=== PATIENT | female | born 1965 | race Caucasian/White ===

== ENCOUNTER → 2018-02-11 | Outpatient (CLI) | payer OTHER ==
--- NOTE | 2018-02-11 16:38 | CT ---
EXAMINATION TYPE: CT thor lumbar spine wo con DATE OF EXAM: 02/11/2018 COMPARISON: Lumbar spine x-ray January 24, 2014 HISTORY: Thoracic and lumbar pain after injury. CT DLP: 661.8 mGycm Automated exposure control for dose reduction was used. FINDINGS: There is slight S-shaped scoliosis dextroconvex in the mid thoracic spine and levoconvex centered in the upper to mid lumbar spine. No acute fracture or dislocation is seen. Small Schmorl node superior T12 endplate is identified sagittal image 39. Vertebral body heights and disc space heights are other gomez fairly well-maintained. Mild anterior spurring L3-L4 level is present. 5 lumbar-type vertebra ar e noted. Small posterior disc herniations are seen L4-L5 and L5-S1 levels on sagittal and axial image s. Mild facet arthropathy lower lumbar spine as seen on axial images. Visualized portion of lungs are clear. Cholecystectomy clips are present. Punctate densities througho ut: Likely reflect ingested food product. Additional surgical clips in the visualized right upper pel vis are noted IMPRESSION: NO ACUTE FRACTURE OR DISLOCATION IS SEEN.
== END | disposition home or self-care (01) ==
LOC: RADCTMAIN 16:06
PROVIDERS: ATTEND Emergency Medicine
DX: S23.3XXA Sprain of ligaments of thoracic spine, initial encounter (principal); S20.229A Contusion of unspecified back wall of thorax, initial encounter
CPT/HCPCS: 72128; 72131

== ENCOUNTER → 2018-03-30 | Outpatient (CLI) | payer OTHER ==
--- NOTE | 2018-03-31 09:51 | MR ---
EXAMINATION TYPE: MR cinthiaine/lspine wo con DATE OF EXAM: 03/30/2018 COMPARISON: CT thoracic and lumbar spine dated 02/11/2018 HISTORY: Contusion of unspecified back wall of thorax, hit in back from falling sledge hammer 01/2018 TECHNIQUE: Multiplanar, multisequence imaging of the thoracic and lumbar spine is performed without I V contrast. FINDINGS: THORACOLUMBAR SPINE: There is redemonstration of a slight S-shaped scoliotic curvature of the thoracolumbar spine that is dextroconvex in the mid thoracic spine and levoconvex in the mid lumbar spine. Vertebral bodies of th e lumbar and thoracic spine maintain vertebral body heights and alignment. THORACIC SPINE: There is mild edema in the subcutaneous tissues of the right paracentral upper thoracic spine from ap proximately T1-T4 without focal fluid collection. Paraspinal muscles are unremarkable throughout. The re is a questionable ill-defined right midpole T2 slightly hyperintense lesion on axial T2 image 20 o f the lumbar spine. There is a very small disc bulge at T1-T2 without spinal canal stenosis or neural foraminal narrowing . At T2-T3 there is a left paracentral disc herniation seen on axial image 14 and 15 impressing upon th e ventral thecal sac creating left paracentral focal spinal canal stenosis. No neural foraminal narro wing is seen. At T3-T4, T4-T5, T5-T6, T6-T7, T7-T8, T8-T9, T9-T10, T10-T11 and T11-T12 there is minimal disc desicc ation without spinal canal stenosis or neural foraminal narrowing. No focal disc herniation. The thoracic spinal cord signal is unremarkable throughout. Schmorl's node is again noted of the supe rior endplate of T12. LUMBAR SPINE: At T12-L1 there is no significant disc disease, spinal canal stenosis or neural foraminal narrowing. At L1-L2 there is mild disc desiccation and minimal facet arthropathy without spinal canal stenosis o r neural foraminal narrowing. At L2-L3 there is a very small central disc herniation and annular tear was upon a broad-based disc b ulge. There is also mild facet arthropathy and mild bilateral ligamentum flavum buckling resulting in minimal bilateral neural foraminal narrowing. Although there is slight impression upon the ventral t hecal sac no significant spinal canal stenosis is seen. At L3-L4 there is a right paracentral annular tear and broad-based disc bulge without focal disc mary iation. Facet arthropathy and ligamentum flavum buckling are seen. There is no spinal canal stenosis and mild bilateral neural foraminal narrowing at this level. At L4-L5 there is a right eccentric broad-based disc bulge and [id number] right neural foramina l narrowing and mild left neural foraminal narrowing. Facet arthropathy and the mentum flavum bucklin g are also seen at this level without spinal canal stenosis. At L5-S1 there is a left paracentral disc herniation impressing upon the ventral thecal sac and creat ing very mild spinal canal stenosis and mild left neural foraminal narrowing. Right neuroforamen is p atent. IMPRESSION: 1. Small left paracentral disc herniation at T2-T3 creating very mild left paracentral small focal sp inal canal stenosis. 2. Paracentral disc herniation at L3-L4 superimposed upon degenerative disc disease crating mild bila teral neural foraminal narrowing. 3. Left paracentral disc herniation at L5-S1 creating very mild spinal canal stenosis and mild left n eural foraminal narrowing. 4. Very small central disc herniation at L2-L3 and examination with degenerative disc disease create minimal bilateral neural foraminal narrowing. 5. Subcutaneous edema right paracentrally at the T1-T4 levels without focal fluid collection. 6. No evidence of vertebral body height loss or malalignment. Mild S-shaped scoliosis of the thoracol umbar spine. 7. Mild to moderate multilevel degenerative disc disease of the thoracolumbar spine. 8. Possible ill-defined right midpole renal lesion that could BE further characterized with renal ult rasound.
== END | disposition home or self-care (01) ==
LOC: RADMRIMAIN 07:46
PROVIDERS: ATTEND Emergency Medicine
DX: M99.72 Connective tissue and disc stenosis of intervertebral foramina of thoracic region (principal); M51.24 Other intervertebral disc displacement, thoracic region; M51.35 Other intervertebral disc degeneration, thoracolumbar region; M99.73 Connective tissue and disc stenosis of intervertebral foramina of lumbar region; M51.27 Other intervertebral disc displacement, lumbosacral region; S20.229D Contusion of unspecified back wall of thorax, subsequent encounter
CPT/HCPCS: 72146; 72148

== ENCOUNTER 2019-01-16 09:24 | Emergency (ER) | payer BC, OTHER ==
[2019-01-16 09:35] VITALS: BP 118/80; PULSE 66; RESP 16; TEMP 97.4
[2019-01-16] MEDS ORDERED: KETOROLAC 30 MG/ML 1 ML VIAL IM STA (10:23)
[2019-01-16] MEDS ORDERED: diphenhydrAMINE 50 MG CAP PO STA (10:23)
[2019-01-16] MEDS ORDERED: METOCLOPRAMIDE 10 MG TAB PO STA (10:23)
[2019-01-16] MEDS ORDERED: KETOROLAC 30 MG/ML 1 ML VIAL IVP STA (10:38)
[2019-01-16] MEDS ORDERED: diphenhydrAMINE 50 MG/ML 1 ML VIAL IVP STA (10:47)
[2019-01-16] MEDS ORDERED: METOCLOPRAMIDE 5 MG/ML 2 ML VIAL IVP STA (10:48)
--- NOTE | 2019-01-16 11:49 | ED ---
General Adult HPI - General Chief complaint: Headache Stated complaint: headache Time Seen by Provider: 01/16/19 10:00 Source: patient, RN notes reviewed Mode of arrival: ambulatory Limitations: no limitations - History of Present Illness Initial comments: 53-year-old female with a past medical history of migraine headache presents to the emergency department for a chief complaint of migraine 3 days. States it is across her forehead. States she does have light sensitivity and nausea and vomiting. States this pain is exactly consistent to previous migraines. Denies any maximal intensity with onset. States she is on a topiramate and her migraines were controlled however her doctor decreased her dose and she started to have migraines again. Denies any difficulty walking. Denies confusion.Patient has no other complaints at this time including shortness of breath, chest pain, abdominal pain, nausea or vomiting, headache, or visual changes. - Related Data Home Medications Medication Instructions Recorded Confirmed Multivitamins, Thera [Multivitamin 1 tab PO DAILY 01/16/19 01/16/19 (formulary)] Topiramate 50 mg PO BID 01/16/19 01/16/19 Allergies Allergy/AdvReac Type Severity Reaction Status Date / Time codeine Allergy Unknown Verified 01/16/19 10:12 Review of Systems ROS Statement: Those systems with pertinent positive or pertinent negative responses have been documented in the HPI. ROS Other: All systems not noted in ROS Statement are negative. Past Medical History Past Medical History: No Reported History Additional Past Medical History / Comment(s): Migraine headaches History of Any Multi-Drug Resistant Organisms: None Reported Past Surgical History: Appendectomy, Cholecystectomy, Orthopedic Surgery Additional Past Surgical History / Comment(s): knee Past Psychological History: No Psychological Hx Reported Smoking Status: Former smoker Past Alcohol Use History: Occasional General Exam Limitations: no limitations General appearance: alert, in no apparent distress Head exam: Present: atraumatic, normocephalic, normal inspection Eye exam: Present: normal appearance, PERRL, EOMI. Absent: scleral icterus, conjunctival injection, periorbital swelling ENT exam: Present: normal exam, mucous membranes moist Neck exam: Present: normal inspection, full ROM. Absent: tenderness, meningismus, lymphadenopathy Respiratory exam: Present: normal lung sounds bilaterally. Absent: respiratory distress, wheezes, rales, rhonchi, stridor Cardiovascular Exam: Present: regular rate, normal rhythm, normal heart sounds. Absent: systolic murmur, diastolic murmur, rubs, gallop, clicks Neurological exam: Present: alert, oriented X3, CN II-XII intact, normal gait, other (15) Expanded Patient oriented to: Present: person, place, time Speech: Present: fluid speech Cranial nerves: EOM's Intact: Normal, Tongue Deviation: Normal, Nystagmus: Normal, Facial Sensation: Normal Cerebellar function: Finger to Nose: Normal Upper motor neuron: Pronator Drift: Normal Sensory exam: Upper Extremity Light Touch: Normal, Upper Extremity Pin Prick: Normal, Lower Extremity Light Touch: Normal, Lower Extremity Pin Prick: Normal Motor strength exam: RUE: 5, LUE: 5, RLE: 5, LLE: 5 Eye Response: (4) open spontaneously Motor Response: (6) obeys commands Verbal Response: (5) oriented Miguelangel Total: 15 Course Vital Signs 01/16/19 09:34 Temperature 97.4 F L Pulse Rate 66 Respiratory 16 Rate Blood Pressure 118/80 O2 Sat by Pulse 99 Oximetry Medical Decision Making - Medical Decision Making 53-year-old female presents to the emergency department for a chief complaint of headache. Patient states this headache is exactly consistent with previous migraines. States her Topamax dose was decreased and she started to have migraines again. Vitals are stable. No focal neurologic deficits. No maximal intensity at onset. Migraine gradually came on. Patient was given migraine cocktail and had significant improvement in pain. States she is feeling well enough to go home. Patient will follow up with primary care about Topamax dose change. She will return here if she has any worsening symptoms. Disposition Clinical Impression: Migraine headache Disposition: HOME SELF-CARE Condition: Good Instructions (If sedation given, give patient instructions): Acute Headache (ED) Additional Instructions: Please follow up with primary care in 1-2 days. Please return to the emergency department if you have any worsening symptoms. Is patient prescribed a controlled substance at d/c from ED?: No Referrals: Elif Ling DO [Primary Care Provider] - 1-2 days Time of Disposition: 11:49
== END 2019-01-16 12:20 | disposition home or self-care (01) ==
LOC: EC 09:24
DX: G43.909 Migraine, unspecified, not intractable, without status migrainosus (principal); Z79.899 Other long term (current) drug therapy; Z88.5 Allergy status to narcotic agent; Z87.891 Personal history of nicotine dependence; Z53.9 Procedure and treatment not carried out, unspecified reason
CPT/HCPCS: 99283; 96374; 96375 ×2; J1200; J2765; J1885

== ENCOUNTER → 2019-01-28 | Outpatient (CLI) | payer BC ==
--- NOTE | 2019-01-28 16:58 | US ---
EXAMINATION TYPE: US kidneys/renal and bladder DATE OF EXAM: 01/28/2019 COMPARISON: NONE CLINICAL HISTORY: N28.9 Kidney Lesion seen on MRI EXAM MEASUREMENTS: Right Kidney: 11.1 x 3.9 x 5.3 cm Left Kidney: 10.4 x 4.7 x 4.5 cm Right Kidney: No hydronephrosis or masses seen, unable to appreciate mass seen on MRI Left Kidney: No hydronephrosis or masses seen Bladder: wnl There is no evidence for hydronephrosis at this point in time. No nephrolithiasis is seen. No pancho s are identified. The urinary bladder is anechoic. Bilateral ureteral jets are seen. IMPRESSION: No distinct renal lesion identified.
== END ==
LOC: RADUSWWP 16:14
PROVIDERS: ATTEND Family Medicine
DX: N28.9 Disorder of kidney and ureter, unspecified (principal)
CPT/HCPCS: 76770

== ENCOUNTER 2019-03-17 09:43 | Emergency (ER) | payer BC ==
[2019-03-17 09:51] VITALS: TEMP 98.1
[2019-03-17] MEDS ORDERED: SODIUM CHLORIDE 0.9% 1,000 ML IV STA (10:29)
--- NOTE | 2019-03-17 11:10 | ED ---
Dizziness HPI - General Chief Complaint: Dizziness Stated Complaint: Sob/chest pain Time Seen by Provider: 03/17/19 10:21 Source: patient Mode of arrival: ambulatory Limitations: no limitations - History of Present Illness Initial Comments: Patient is a 53-year-old female, with past medical history of migraines, presenting to the emergency Department with complaints of feeling dizzy as well as some shortness of breath for 2 days. Patient states for the last week she has been feeling more fatigued than usual. Patient denies any fever, chills, cough. 3 days ago patient started feeling intermittent lightheadedness when she was trying to do housework or exercising. Over the weekend she experienced the same thing as well as having chest palpitations during exercise and having hard time catching her breath. Patient states she does do a lot of cardio and states she's been having a hard time with that this past 2 days. Patient states she called her doctor today for a visit but they suggested she come to the ER. Patient denies any chest pain, nausea, vomiting, diarrhea. Patient states she has been under a lot of stress in the past month and wasn't sure if that was causing her symptoms. Patient denies any recent changes in medications. Patient has no other complaints at this time. Upon arrival to the ER, vital signs are stable. - Related Data Home Medications Medication Instructions Recorded Confirmed Multivitamins, Thera [Multivitamin 1 tab PO DAILY 01/16/19 03/17/19 (formulary)] Topiramate 50 mg PO BID 01/16/19 03/17/19 Hyoscyamine Sulfate [Levbid] 0.375 mg PO BID 03/17/19 03/17/19 valACYclovir [Valtrex] 50 mg PO DAILY 03/17/19 03/17/19 Allergies Allergy/AdvReac Type Severity Reaction Status Date / Time codeine Allergy Unknown Verified 03/17/19 11:22 Review of Systems ROS Statement: Those systems with pertinent positive or pertinent negative responses have been documented in the HPI. ROS Other: All systems not noted in ROS Statement are negative. Past Medical History Past Medical History: No Reported History Additional Past Medical History / Comment(s): Migraine headaches History of Any Multi-Drug Resistant Organisms: None Reported Past Surgical History: Appendectomy, Cholecystectomy, Orthopedic Surgery Additional Past Surgical History / Comment(s): knee Past Psychological History: No Psychological Hx Reported Smoking Status: Never smoker Past Alcohol Use History: None Reported Past Drug Use History: None Reported General Exam - General Exam Comments Initial Comments: GENERAL: Well-appearing, well-nourished and in no acute distress. HEAD: Atraumatic, normocephalic. EYES: Pupils equal round and reactive to light, extraocular movements intact, sclera anicteric, conjunctiva are normal. ENT: TMs normal, nares patent, oropharynx clear without exudates. Moist mucous membranes. NECK: Normal range of motion, supple without lymphadenopathy or JVD. LUNGS: Breath sounds clear to auscultation bilaterally and equal. No wheezes rales or rhonchi. HEART: Regular rate and rhythm without murmurs, rubs or gallops. ABDOMEN: Soft, nontender, normoactive bowel sounds. No guarding, no rebound. No masses appreciated. : Deferred EXTREMITIES: Normal range of motion, no pitting or edema. No clubbing or cyanosis. NEUROLOGICAL: Cranial nerves II through XII grossly intact. Normal speech, normal gait. PSYCH: Normal mood, normal affect. SKIN: Warm, Dry, normal turgor, no rashes or lesions noted. Limitations: no limitations Course Vital Signs 03/17/19 03/17/19 09:47 13:36 Temperature 98.1 F Pulse Rate 65 64 Respiratory 18 16 Rate Blood Pressure 127/88 109/68 O2 Sat by Pulse 99 99 Oximetry EKG Findings - EKG Comments: EKG Findings:: Ventricular rate 57, NM interval 134, QTC 410. Sinus bradycardia, left axis deviation. No acute ST segment changes Medical Decision Making - Medical Decision Making Patient is a 53-year-old female presenting with lightheadedness as well as occasional shortness of breath for the past few days. Vital signs are stable. Patient's exam is unremarkable. Lab work shows no acute abnormalities. Troponin is normal. UA shows no signs of infection. EKG shows no acute abnormalities or changes. Chest x-ray shows no acute cardiopulmonary process. Patient was given a fluid bolus. Patient states she is feeling okay right now. Denies chest pain, nausea, vomiting. Discussed with patient that her workup was normal today and that her symptoms could be from the stress she has been experiencing. Patient is requesting to be discharged. Patient will follow up w ith her PCP in the next 1-3 days. Strict return parameters were discussed with the patient and she verbalized understanding. Patient is stable for discharge at this time. Case discussed with Dr. Mitchell. - Lab Data Result diagrams: 03/17/19 11:24 03/17/19 11:24 Lab Results 03/17/19 03/17/19 03/17/19 Range/Units 11:24 11:24 11:24 WBC 5.6 (3.8-10.6) k/uL RBC 4.36 (3.80-5.40) m/uL Hgb 14.1 (11.4-16.0) gm/dL Hct 42.5 (34.0-46.0) % MCV 97.4 (80.0-100.0) fL MCH 32.3 (25.0-35.0) pg MCHC 33.2 (31.0-37.0) g/dL RDW 12.8 (11.5-15.5) % Plt Count 218 (150-450) k/uL Neutrophils % 65 % Lymphocytes % 26 % Monocytes % 5 % Eosinophils % 2 % Basophils % 1 % Neutrophils # 3.6 (1.3-7.7) k/uL Lymphocytes # 1.5 (1.0-4.8) k/uL Monocytes # 0.3 (0-1.0) k/uL Eosinophils # 0.1 (0-0.7) k/uL Basophils # 0.0 (0-0.2) k/uL PT 10.1 (9.0-12.0) sec INR 0.9 (<1.2) APTT 25.1 (22.0-30.0) sec Sodium 141 (137-145) mmol/L Potassium 4.0 (3.5-5.1) mmol/L Chloride 111 H (98-107) mmol/L Carbon Dioxide 22 (22-30) mmol/L Anion Gap 8 mmol/L BUN 16 (7-17) mg/dL Creatinine 0.71 (0.52-1.04) mg/dL Est GFR (CKD-EPI)AfAm >90 (>60 ml/min/1.73 sqM) Est GFR (CKD-EPI)NonAf >90 (>60 ml/min/1.73 sqM) Glucose 80 (74-99) mg/dL Calcium 10.1 (8.4-10.2) mg/dL Total Bilirubin 0.5 (0.2-1.3) mg/dL AST 27 (14-36) U/L ALT 24 (9-52) U/L Alkaline Phosphatase 47 (38-126) U/L Troponin I (0.000-0.034) ng/mL Total Protein 7.1 (6.3-8.2) g/dL Albumin 4.5 (3.5-5.0) g/dL Urine Color Urine Appearance (Clear) Urine pH (5.0-8.0) Ur Specific Bouse (1.001-1.035) Urine Protein (Negative) Urine Glucose (UA) (Negative) Urine Ketones (Negative) Urine Blood (Negative) Urine Nitrite (Negative) Urine Bilirubin (Negative) Urine Urobilinogen (<2.0) mg/dL Ur Leukocyte Esterase (Negative) 03/17/19 03/17/19 Range/Units 11:24 12:27 WBC (3.8-10.6) k/uL RBC (3.80-5.40) m/uL Hgb (11.4-16.0) gm/dL Hct (34.0-46.0) % MCV (80.0-100.0) fL MCH (25.0-35.0) pg MCHC (31.0-37.0) g/dL RDW (11.5-15.5) % Plt Count (150-450) k/uL Neutrophils % % Lymphocytes % % Monocytes % % Eosinophils % % Basophils % % Neutrophils # (1.3-7.7) k/uL Lymphocytes # (1.0-4.8) k/uL Monocytes # (0-1.0) k/uL Eosinophils # (0-0.7) k/uL Basophils # (0-0.2) k/uL PT (9.0-12.0) sec INR (<1.2) APTT (22.0-30.0) sec Sodium (137-145) mmol/L Potassium (3.5-5.1) mmol/L Chloride (98-107) mmol/L Carbon Dioxide (22-30) mmol/L Anion Gap mmol/L BUN (7-17) mg/dL Creatinine (0.52-1.04) mg/dL Est GFR (CKD-EPI)AfAm (>60 ml/min/1.73 sqM) Est GFR (CKD-EPI)NonAf (>60 ml/min/1.73 sqM) Glucose (74-99) mg/dL Calcium (8.4-10.2) mg/dL Total Bilirubin (0.2-1.3) mg/dL AST (14-36) U/L ALT (9-52) U/L Alkaline Phosphatase (38-126) U/L Troponin I <0.012 (0.000-0.034) ng/mL Total Protein (6.3-8.2) g/dL Albumin (3.5-5.0) g/dL Urine Color Light Yellow Urine Appearance Cloudy H (Clear) Urine pH 6.5 (5.0-8.0) Ur Specific Bouse 1.015 (1.001-1.035) Urine Protein Negative (Negative) Urine Glucose (UA) Negative (Negative) Urine Ketones Negative (Negative) Urine Blood Negative (Negative) Urine Nitrite Negative (Negative) Urine Bilirubin Negative (Negative) Urine Urobilinogen <2.0 (<2.0) mg/dL Ur Leukocyte Esterase Negative (Negative) Disposition Clinical Impression: Fatigue Disposition: HOME SELF-CARE Condition: Stable Instructions (If sedation given, give patient instructions): Fatigue (ED) Additional Instructions: Please return to the Emergency Department if symptoms worsen or any other concerns. Follow-up with PCP in the next 1 to 3 days. Continue to increase fluids and eat a regular diet. Is patient prescribed a controlled substance at d/c from ED?: No Referrals: Elif Ling DO [Primary Care Provider] - 1-2 days
[2019-03-17 11:56] LABS: Basophils % (A) 1 %; Eosinophils # (A) 0.1 k/uL (0-0.7); Eosinophils % (A) 2 %; HCT 42.5 % (34.0-46.0); HGB 14.1 gm/dL (11.4-16.0); Lymphocytes # (A) 1.5 k/uL (1.0-4.8); Lymphocytes % (A) 26 %; MCH 32.3 pg (25.0-35.0); MCHC 33.2 g/dL (31.0-37.0); MCV 97.4 fL (80.0-100.0); Mean Platelet Volume 7.2; Monocytes # (A) 0.3 k/uL (0-1.0); Monocytes % (A) 5 %; Neutrophils # (A) 3.6 k/uL (1.3-7.7); Neutrophils % (A) 65 %; Platelet Count 218 k/uL (150-450); RBC 4.36 m/uL (3.80-5.40); RDW 12.8 % (11.5-15.5); WBC 5.6 k/uL (3.8-10.6)
[2019-03-17 12:08] LABS: INR 0.9 (<1.2); Partial Thromboplastin Time 25.1 sec (22.0-30.0); Prothrombin Time 10.1 sec (9.0-12.0)
--- NOTE | 2019-03-17 12:08 | XR ---
EXAMINATION TYPE: XR chest 2V DATE OF EXAM: 03/17/2019 COMPARISON: NONE HISTORY: Chest pain and shortness of breath TECHNIQUE: Frontal and lateral views of the chest are obtained. FINDINGS: There is no focal air space opacity, pleural effusion, or pneumothorax seen. The cardiac silhouette size is within normal limits. The osseous structures are intact. Cholecystectomy clips a re seen. Very mild dextroscoliosis of the visualized thoracolumbar spine. IMPRESSION: No acute cardiopulmonary process.
[2019-03-17 12:11] LABS: ALT 24 U/L (9-52); AST 27 U/L (14-36); African American GFR (CKD) >90 (>60 ml/min/1.73 sqM); Albumin 4.5 g/dL (3.5-5.0); Alkaline Phosphatase 47 U/L (38-126); Anion Gap 8 mmol/L; Blood Urea Nitrogen 16 mg/dL (7-17); Calcium 10.1 mg/dL (8.4-10.2); Carbon Dioxide 22 mmol/L (22-30); Chloride 111 mmol/L (98-107); Glucose 80 mg/dL (74-99); Non-African American GFR(CKD) >90 (>60 ml/min/1.73 sqM); Sodium 141 mmol/L (137-145); Total Bilirubin 0.5 mg/dL (0.2-1.3); Total Protein 7.1 g/dL (6.3-8.2)
[2019-03-17 13:01] LABS: Appearance,Urine Cloudy (Clear); Bilirubin,Urine Negative (Negative); Blood,Urine Negative (Negative); Color,Urine Light Yellow; Glucose,Urine (UA) Negative (Negative); Ketones,Urine Negative (Negative); Leukocyte Esterase,Urine Negative (Negative); Nitrite,Urine Negative (Negative); PH, Urine 6.5 (5.0-8.0); Protein,Urine Negative (Negative); Specific Gravity,Urine 1.015 (1.001-1.035); Urobilinogen,Urine <2.0 mg/dL (<2.0)
[2019-03-17 13:37] VITALS: BP 109/68; PULSE 64; RESP 16
== END 2019-03-17 13:36 | disposition home or self-care (01) ==
LOC: EC 09:43
DX: R53.83 Other fatigue (principal); R42 Dizziness and giddiness; G43.909 Migraine, unspecified, not intractable, without status migrainosus; Z88.5 Allergy status to narcotic agent; Z79.899 Other long term (current) drug therapy
CPT/HCPCS: 36415; 71046; 80053; 81001; 84484; 85025; 85610; 85730; 93005; 96360; 96361; 99284

== ENCOUNTER 2020-03-06 08:06 | Emergency (ER) | payer BC ==
[2020-03-06 08:10] VITALS: RESP 18; TEMP 98.2
[2020-03-06] MEDS ORDERED: METOCLOPRAMIDE 5 MG/ML 2 ML VIAL IVP STA (09:08)
[2020-03-06] MEDS ORDERED: KETOROLAC 15 MG/ML 1 ML VIAL IVP STA (09:09)
[2020-03-06] MEDS ORDERED: SODIUM CHLORIDE 0.9% 1,000 ML IV STA ×2 (09:09)
[2020-03-06] MEDS ORDERED: diphenhydrAMINE 50 MG/ML 1 ML VIAL IVP STA (09:36)
--- NOTE | 2020-03-06 10:26 | ED ---
Headache HPI - General Chief Complaint: Headache Stated Complaint: Migrane Time Seen by Provider: 03/06/20 08:13 Source: RN notes reviewed Mode of arrival: ambulatory Limitations: no limitations - History of Present Illness Initial Comments: This a 54-year-old female with a history of migraine headaches who states she's had a migraine headache on for about a week with moderate pain some nausea no vomiting has photophobia this is typical of her migraines no loss of function to her upper or lower extremities no other complaints or modifying factors MD Complaint: headache - Related Data Home Medications Medication Instructions Recorded Confirmed Topiramate 50 mg PO TID 01/16/19 03/06/20 Hyoscyamine Sulfate [Levbid] 0.375 mg PO BID 03/17/19 03/06/20 valACYclovir [Valtrex] 500 mg PO DAILY 03/17/19 03/06/20 Allergies Allergy/AdvReac Type Severity Reaction Status Date / Time codeine Allergy Unknown Verified 03/06/20 09:50 Review of Systems ROS Statement: Those systems with pertinent positive or pertinent negative responses have been documented in the HPI. ROS Other: All systems not noted in ROS Statement are negative. Past Medical History Past Medical History: No Reported History Additional Past Medical History / Comment(s): Migraine headaches History of Any Multi-Drug Resistant Organisms: None Reported Past Surgical History: Appendectomy, Cholecystectomy, Orthopedic Surgery Additional Past Surgical History / Comment(s): knee Past Psychological History: No Psychological Hx Reported Smoking Status: Never smoker Past Alcohol Use History: None Reported Past Drug Use History: None Reported General Exam - General Exam Comments Initial Comments: Is a well-developed well-nourished awake alert oriented 3 female Limitations: no limitations General appearance: alert, in no apparent distress Head exam: Present: atraumatic, normocephalic, normal inspection Eye exam: Present: normal appearance, PERRL, EOMI. Absent: scleral icterus, conjunctival injection, periorbital swelling ENT exam: Present: normal exam, mucous membranes moist Neck exam: Present: normal inspection. Absent: tenderness, meningismus, lympha denopathy Respiratory exam: Present: normal lung sounds bilaterally. Absent: respiratory distress, wheezes, rales, rhonchi, stridor Cardiovascular Exam: Present: regular rate, normal rhythm, normal heart sounds. Absent: systolic murmur, diastolic murmur, rubs, gallop, clicks GI/Abdominal exam: Present: soft, normal bowel sounds. Absent: distended, tenderness, guarding, rebound, rigid Extremities exam: Present: normal inspection, full ROM, normal capillary refill. Absent: tenderness, pedal edema, joint swelling, calf tenderness Back exam: Present: normal inspection Neurological exam: Present: alert, oriented X3, CN II-XII intact Psychiatric exam: Present: normal affect, normal mood Skin exam: Present: warm, dry, intact, normal color. Absent: rash Course Vital Signs 03/06/20 08:09 Temperature 98.2 F Pulse Rate 63 Respiratory 18 Rate Blood Pressure 115/77 O2 Sat by Pulse 100 Oximetry Medical Decision Making - Medical Decision Making The patient is feeling much improved at this time her pain is much better she states that she would like to go home she'll be discharged. She is return if needed and otherwise follow-up with her doctor Disposition Clinical Impression: Migraine headache Disposition: HOME SELF-CARE Condition: Good Instructions (If sedation given, give patient instructions): Acute Headache (ED), Migraine Headache (ED) Is patient prescribed a controlled substance at d/c from ED?: No Referrals: Elif Ling DO [Primary Care Provider] - 1-2 days
[2020-03-06 11:07] VITALS: BP 105/68; PULSE 60
== END 2020-03-06 11:07 | disposition home or self-care (01) ==
LOC: EC 08:06
DX: G43.909 Migraine, unspecified, not intractable, without status migrainosus (principal); Z79.899 Other long term (current) drug therapy; Z88.5 Allergy status to narcotic agent
CPT/HCPCS: 99283; 96374; 96375 ×2; 96361 ×2; J1200; J2765; J1885

== ENCOUNTER 2020-03-18 03:26 | Emergency (ER) | payer BC ==
[2020-03-18 03:47] VITALS: RESP 18; TEMP 97.7
--- NOTE | 2020-03-18 03:54 | ED ---
Headache HPI - General Chief Complaint: Headache Stated Complaint: headache Time Seen by Provider: 03/18/20 03:30 Source: RN notes reviewed, old records reviewed Mode of arrival: ambulatory Limitations: no limitations - History of Present Illness Initial Comments: This is a 54-year-old female DF for evaluation she has history of migraine coming in for migraine evaluation. States she is cannot control her headache no new traumas no fevers no change in quality of her headache she has been taking her daily headache medication without help. She also has nausea no vomiting is keeping down medications. Patient just states headache relief MD Complaint: headache, "migraine" (Same as classic migraine) -: hour(s) Onset Description: gradual Location: right, left, temporal Severity: moderate Severity scale (1-10): 5 Quality: throbbing Consistency: constant Improves With: nothing Worsens With: light, noise Context: occurred at rest Associated Symptoms: nausea Treatments Prior to Arrival: none - Related Data Home Medications Medication Instructions Recorded Confirmed Topiramate 50 mg PO TID 01/16/19 03/06/20 Hyoscyamine Sulfate [Levbid] 0.375 mg PO BID 03/17/19 03/06/20 valACYclovir [Valtrex] 500 mg PO DAILY 03/17/19 03/06/20 Allergies Allergy/AdvReac Type Severity Reaction Status Date / Time codeine Allergy Unknown Verified 03/06/20 09:50 Review of Systems ROS Statement: Those systems with pertinent positive or pertinent negative responses have been documented in the HPI. ROS Other: All systems not noted in ROS Statement are negative. Past Medical History Past Medical History: No Reported History Additional Past Medical History / Comment(s): Migraine headaches History of Any Multi-Drug Resistant Organisms: None Reported Past Surgical History: Appendectomy, Cholecystectomy, Orthopedic Surgery Additional Past Surgical History / Comment(s): knee Past Psychological History: No Psychological Hx Reported Smoking Status: Never smoker Past Alcohol Use History: None Reported Past Drug Use History: None Reported General Exam Limitations: no limitations General appearance: alert, in no apparent distress Head exam: Present: atraumatic, normocephalic, normal inspection Eye exam: Present: normal appearance, PERRL, EOMI. Absent: scleral icterus, conjunctival injection, periorbital swelling ENT exam: Present: normal exam, mucous membranes moist Neck exam: Present: normal inspection. Absent: tenderness, meningismus, lymphadenopathy Respiratory exam: Present: normal lung sounds bilaterally. Absent: respiratory distress, wheezes, rales, rhonchi, stridor Cardiovascular Exam: Present: regular rate, normal rhythm, normal heart sounds. Absent: systolic murmur, diastolic murmur, rubs, gallop, clicks GI/Abdominal exam: Present: soft, normal bowel sounds. Absent: distended, tenderness, guarding, rebound, rigid Extremities exam: Present: normal inspection, full ROM, normal capillary refill. Absent: tenderness, pedal edema, joint swelling, calf tenderness Back exam: Present: normal inspection Neurological exam: Present: alert, oriented X3, CN II-XII intact Psychiatric exam: Present: normal affect, normal mood Skin exam: Present: warm, dry, intact, normal color. Absent: rash Course Vital Signs 03/18/20 03/18/20 03:43 05:47 Temperature 97.7 F 97.7 F Pulse Rate 62 78 Respiratory 18 18 Rate Blood Pressure 107/73 134/74 O2 Sat by Pulse 98 97 Oximetry - Reevaluation(s) Reevaluation #1: Medical record is reviewed Patient is improvement versus resolution of symptoms Spoke with patient regarding findings here in the ER questions answered Patient feels good for discharge Medical Decision Making - Medical Decision Making 54 female to the ER for evaluation of headache. Recent migraine headache last migraine, patient can be discharged home Disposition Clinical Impression: Migraine headache Disposition: HOME SELF-CARE Condition: Good Instructions (If sedation given, give patient instructions): Acute Headache (ED) Is patient prescribed a controlled substance at d/c from ED?: No Referrals: Elif Ling DO [Primary Care Provider] - 1-2 days
[2020-03-18] MEDS ORDERED: SODIUM CHLORIDE 0.9% 1,000 ML IV STA (03:59)
[2020-03-18] MEDS ORDERED: KETOROLAC 15 MG/ML 1 ML VIAL IVP STA (03:59)
[2020-03-18] MEDS ORDERED: METOCLOPRAMIDE 5 MG/ML 2 ML VIAL IVP STA (03:59)
[2020-03-18] MEDS ORDERED: diphenhydrAMINE 50 MG/ML 1 ML VIAL IVP STA (03:59)
[2020-03-18 05:48] VITALS: BP 134/74; PULSE 78
== END 2020-03-18 05:48 | disposition home or self-care (01) ==
LOC: EC 03:26
DX: G43.909 Migraine, unspecified, not intractable, without status migrainosus (principal); Z88.5 Allergy status to narcotic agent; Z90.49 Acquired absence of other specified parts of digestive tract
CPT/HCPCS: 99283; 96365; 96375 ×3; J1200; J2765; J2930; J1885; 96374

== ENCOUNTER 2021-09-08 00:11 | Emergency (ER) | payer BC ==
[2021-09-08 00:16] VITALS: TEMP 97.4
[2021-09-08] MEDS ORDERED: SODIUM CHLORIDE 0.9% 1,000 ML IV STA (00:50)
[2021-09-08] MEDS ORDERED: diphenhydrAMINE 50 MG/ML 1 ML VIAL IVP STA (00:50)
[2021-09-08] MEDS ORDERED: ONDANSETRON 4 MG/2 ML VIAL IVP STA (00:50)
[2021-09-08] MEDS ORDERED: KETOROLAC 15 MG/ML 1 ML VIAL IVP STA ×2 (00:50→02:20)
--- NOTE | 2021-09-08 00:53 | ED ---
General Adult HPI - General Chief complaint: Headache Stated complaint: Headache Time Seen by Provider: 09/08/21 00:23 Source: patient, RN notes reviewed Mode of arrival: wheelchair Limitations: no limitations - History of Present Illness Initial comments: 55-year-old female presents to the emergency department for evaluation of headache. Patient states this is a typical migraine headache for her, onset 36 hours prior to arrival. Patient states the pain is located on the left side of her head and is accompanied by sensitivity to light and sound, dizziness, and some blurry vision. Patient states she is nauseous and took her sumatriptan prior to arrival with no improvement. Patient states she has a headaches that become this severe a couple of times a year and has to come to the emergency department for fluids and medicine. Denies fever, chills, neck pain, chest pain, difficulty breathing, cough, abdominal pain, diarrhea, dysuria, or anshu turia. - Related Data Home Medications Medication Instructions Recorded Confirmed Topiramate 50 mg PO TID 01/16/19 03/06/20 Hyoscyamine Sulfate [Levbid] 0.375 mg PO BID 03/17/19 03/06/20 valACYclovir [Valtrex] 500 mg PO DAILY 03/17/19 03/06/20 Allergies Allergy/AdvReac Type Severity Reaction Status Date / Time codeine Allergy Unknown Verified 09/08/21 00:16 Review of Systems ROS Statement: Those systems with pertinent positive or pertinent negative responses have been documented in the HPI. ROS Other: All systems not noted in ROS Statement are negative. Past Medical History Past Medical History: No Reported History Additional Past Medical History / Comment(s): Migraine headaches History of Any Multi-Drug Resistant Organisms: None Reported Past Surgical History: Appendectomy, Cholecystectomy, Orthopedic Surgery Additional Past Surgical History / Comment(s): knee Past Psychological History: No Psychological Hx Reported Smoking Status: Never smoker Past Alcohol Use History: None Reported Past Drug Use History: None Reported General Exam Limitations: no limitations General appearance: alert, other (Well-developed, well-nourished female in moderate distress due to pain. Initial temperature 97.4, pulse 61, respirations 16, blood pressure 133/85, pulse ox 97% on room air.) Head exam: Present: atraumatic, normocephalic, normal inspection Eye exam: Present: normal appearance, PERRL, EOMI. Absent: scleral icterus, conjunctival injection, periorbital swelling Neck exam: Present: normal inspection, full ROM. Absent: tenderness, meningismus, lymphadenopathy Respiratory exam: Present: normal lung sounds bilaterally. Absent: respiratory distress, wheezes, rales, rhonchi, stridor Cardiovascular Exam: Present: regular rate, normal rhythm, normal heart sounds. Absent: systolic murmur, diastolic murmur, rubs, gallop, clicks GI/Abdominal exam: Present: soft, normal bowel sounds. Absent: distended, tenderness, guarding, rebound, rigid Back exam: Absent: CVA tenderness (R), CVA tenderness (L) Neurological exam: Present: alert, oriented X3 Psychiatric exam: Present: flat affect Skin exam: Present: warm, dry, intact, normal color Course Vital Signs 09/08/21 00:14 Temperature 97.4 F L Pulse Rate 61 Respiratory 16 Rate Blood Pressure 133/85 O2 Sat by Pulse 97 Oximetry - Reevaluation(s) Reevaluation #1: 09/08/21 02:15 Upon reassessment, patient reports modest improvement. I did offer additional dose of Toradol and patient was agreeable. Patient's nausea resolved and photosensitivity improved. Medical Decision Making - Medical Decision Making 55-year-old female with a past medical history of migraine headaches presents to the emergency department for evaluation of headache, onset 36 hours prior to arrival. Upon exam, patient is initially sensitive to light and sound, complaining of unilateral headache, and ongoing nausea. Attempt to treat migraine at home was sumatriptan prior to arrival was unsuccessful. Patient states this headache is typical of her migraines. No focal neurological deficits. Patient is afebrile with no neck stiffness. She was given migraine cocktail with repeat dose of Toradol and had significant improvement. Verbalizes readiness for discharge. Instructed to follow up with her PCP for a recheck. Return parameters discussed in detail. Patient verbalizes understanding and agrees with this plan. Attending: Philip. Disposition Clinical Impression: Migraine headache Disposition: HOME SELF-CARE Condition: Stable Instructions (If sedation given, give patient instructions): Migraine Headache (ED) Additional Instructions: Continue your home medications as prescribed. Follow-up with your PCP for recheck on Sunday. Return to emergency department with any new, worsening, or concerning symptoms. Is patient prescribed a controlled substance at d/c from ED?: No Referrals: Elif Ling DO [Primary Care Provider] - 1-2 days Time of Disposition: 02:32
[2021-09-08 03:10] VITALS: BP 106/63; PULSE 69; RESP 18
== END 2021-09-08 03:09 | disposition home or self-care (01) ==
LOC: EC 00:11
DX: G43.909 Migraine, unspecified, not intractable, without status migrainosus (principal); Z88.5 Allergy status to narcotic agent
CPT/HCPCS: 99283; 96374; 96375; 96376; 96361; J1200; J2405; J1885

== ENCOUNTER 2022-01-02 11:35 | Emergency (ER) | payer BC ==
[2022-01-02] MEDS ORDERED: SODIUM CHLORIDE 0.9% 1,000 ML IV STA (11:42)
[2022-01-02] MEDS ORDERED: KETOROLAC 15 MG/ML 1 ML VIAL IM STA (11:43)
[2022-01-02 11:52] VITALS: TEMP 97.3
--- NOTE | 2022-01-02 11:52 | ED ---
General Adult HPI - General Chief complaint: Syncope Stated complaint: syncope Time Seen by Provider: 01/02/22 11:36 - History of Present Illness Initial comments: Patient is a 56 year old female presenting to the emergency room via EMS after a syncopal episode in the bathroom earlier today while she was vomiting. She reports feeling generalized malaise and unwell for the last 3 days with increase in chronic migraines, body aches, nausea and vomiting. She has utilized her home medication of sumatriptan for migraine without any relief of headache. She had a syncopal event in the bathroom after vomiting today in which she did hit her head; she is unsure what she hit her head on but does note a small laceration and some pain to her right eyebrow. She reports feeling warm and having chills at home but has not checked her temperature. She does not have a history of any syncopal event. She denies any dizziness, focal neurological deficits, paresthesia, chest pain, or shortness of breath. She denies any known exposure to COVID. Estimated she has past medical history significant for migraines; she denies any other significant past medical history. - Related Data Home Medications Medication Instructions Recorded Confirmed Topiramate 50 mg PO TID 01/16/19 03/06/20 Hyoscyamine Sulfate [Levbid] 0.375 mg PO BID 03/17/19 03/06/20 valACYclovir HCL [Valtrex] 500 mg PO DAILY 03/17/19 03/06/20 Previous Rx's Medication Instructions Recorded Nirmatrelvir/Ritonavir [Paxlovid 1 each PO BID 5 Days #10 tab 01/02/22 2X150 mg-100 mg (Eua)] Allergies Allergy/AdvReac Type Severity Reaction Status Date / Time codeine Allergy Unknown Verified 01/02/22 11:44 Review of Systems ROS Statement: Those systems with pertinent positive or pertinent negative responses have been documented in the HPI. ROS Other: All systems not noted in ROS Statement are negative. Past Medical History Past Medical History: No Reported History Additional Past Medical History / Comment(s): Migraine headaches History of Any Multi-Drug Resistant Organisms: None Reported Past Surgical History: Appendectomy, Cholecystectomy, Orthopedic Surgery Additional Past Surgical History / Comment(s): knee Past Psychological History: No Psychological Hx Reported Smoking Status: Never smoker Past Alcohol Use History: None Reported Past Drug Use History: None Reported General Exam General appearance: alert, other (Appears ill without acute distress) Head exam: Present: normocephalic, other (Tenderness with sudden centimeter laceration to right eyebrow) Eye exam: Present: normal appearance, PERRL, EOMI. Absent: scleral icterus, conjunctival injection, periorbital swelling ENT exam: Present: normal exam, mucous membranes moist Neck exam: Present: normal inspection Respiratory exam: Present: wheezes (Upper bilateral posterior expiratory). Absent: respiratory distress, rales, rhonchi, stridor, chest wall tenderness, accessory muscle use Cardiovascular Exam: Present: regular rate, normal rhythm, normal heart sounds. Absent: systolic murmur, diastolic murmur, rubs, gallop, clicks GI/Abdominal exam: Present: soft, normal bowel sounds. Absent: distended, tenderness, guarding, rebound, rigid Extremities exam: Present: normal inspection. Absent: pedal edema, joint swelling Back exam: Present: normal inspection Neurological exam: Present: alert, oriented X3, CN II-XII intact Psychiatric exam: Present: flat affect Skin exam: Present: warm, dry, other (Laceration right eyebrow) Course Vital Signs 01/02/22 01/02/22 11:38 13:35 Temperature 97.3 F L Pulse Rate 63 57 L Respiratory 17 16 Rate Blood Pressure 107/88 113/75 O2 Sat by Pulse 100 100 Oximetry Medical Decision Making - Medical Decision Making 56-year-old female presents to the emergency room with syncopal event while vomiting and the bathroom early this morning; she also reports generalized malaise 3 days with body aches, fevers, chills nausea and vomiting. Due to syncopal event with head trauma with unknown LOC duration will check CT of the head along with EKG, chest x-ray, CBC, CMP, magnesium, troponin, amylase, lipase, urinalysis, and COVID swab. Will give additional IV fluid bolus of 1L in addition to 250 mL received by EMS denies anti-medics need at this time. Will give Toradol for pain and monitor response. Symptoms improved with IV fluids and Toradol. Computed tomography scan of brain and cervical spine without acute findings. Chest x-ray without acute cardiopulmonary process. EKG shows sinus bradycardia at patient's baseline. CBC and CMP stable coags normal. Positive for Covid. Symptomatic treatment regarding Covid reviewed. Encouraged quarantining for 5 da ys, plenty of fluid intake and vitamin C, zinc, and D, no contraindication to Paxlovid. Will prescribed. Case discussed with Dr. Ross. - Lab Data Result diagrams: 01/02/22 11:55 01/02/22 11:55 Lab Results 01/02/22 01/02/22 01/02/22 Range/Units 11:55 11:55 11:55 WBC 3.6 L (3.8-10.6) k/uL RBC 5.06 (3.80-5.40) m/uL Hgb 16.7 H (11.4-16.0) gm/dL Hct 47.8 H (34.0-46.0) % MCV 94.4 (80.0-100.0) fL MCH 33.1 (25.0-35.0) pg MCHC 35.1 (31.0-37.0) g/dL RDW 13.1 (11.5-15.5) % Plt Count 216 (150-450) k/uL MPV 8.5 Neutrophils % 49 % Lymphocytes % 35 % Monocytes % 11 % Eosinophils % 0 % Basophils % 1 % Neutrophils # 1.7 (1.3-7.7) k/uL Lymphocytes # 1.3 (1.0-4.8) k/uL Monocytes # 0.4 (0-1.0) k/uL Eosinophils # 0.0 (0-0.7) k/uL Basophils # 0.1 (0-0.2) k/uL PT 10.4 (9.0-12.0) sec INR 0.9 (<1.2) APTT 23.7 (22.0-30.0) sec Sodium 136 L (137-145) mmol/L Potassium 4.9 (3.5-5.1) mmol/L Chloride 98 (98-107) mmol/L Carbon Dioxide 22 (22-30) mmol/L Anion Gap 16 mmol/L BUN 13 (7-17) mg/dL Creatinine 0.88 (0.52-1.04) mg/dL Est GFR (CKD-EPI)AfAm 86 (>60 ml/min/1.73 sqM) Est GFR (CKD-EPI)NonAf 74 (>60 ml/min/1.73 sqM) Glucose 105 H (74-99) mg/dL Calcium 9.9 (8.4-10.2) mg/dL Magnesium 2.1 (1.6-2.3) mg/dL Total Bilirubin 0.8 (0.2-1.3) mg/dL AST 52 H (14-36) U/L ALT 22 (4-34) U/L Alkaline Phosphatase 68 (38-126) U/L Troponin I (0.000-0.034) ng/mL Total Protein 8.0 (6.3-8.2) g/dL Albumin 5.0 (3.5-5.0) g/dL Amylase 116 H (30-110) U/L Lipase 215 (23-300) U/L Coronavirus (PCR) (Not Detectd) 01/02/22 01/02/22 Range/Units 11:55 11:55 WBC (3.8-10.6) k/uL RBC (3.80-5.40) m/uL Hgb (11.4-16.0) gm/dL Hct (34.0-46.0) % MCV (80.0-100.0) fL MCH (25.0-35.0) pg MCHC (31.0-37.0) g/dL RDW (11.5-15.5) % Plt Count (150-450) k/uL MPV Neutrophils % % Lymphocytes % % Monocytes % % Eosinophils % % Basophils % % Neutrophils # (1.3-7.7) k/uL Lymphocytes # (1.0-4.8) k/uL Monocytes # (0-1.0) k/uL Eosinophils # (0-0.7) k/uL Basophils # (0-0.2) k/uL PT (9.0-12.0) sec INR (<1.2) APTT (22.0-30.0) sec Sodium (137-145) mmol/L Potassium (3.5-5.1) mmol/L Chloride (98-107) mmol/L Carbon Dioxide (22-30) mmol/L Anion Gap mmol/L BUN (7-17) mg/dL Creatinine (0.52-1.04) mg/dL Est GFR (CKD-EPI)AfAm (>60 ml/min/1.73 sqM) Est GFR (CKD-EPI)NonAf (>60 ml/min/1.73 sqM) Glucose (74-99) mg/dL Calcium (8.4-10.2) mg/dL Magnesium (1.6-2.3) mg/dL Total Bilirubin (0.2-1.3) mg/dL AST (14-36) U/L ALT (4-34) U/L Alkaline Phosphatase (38-126) U/L Troponin I <0.012 (0.000-0.034) ng/mL Total Protein (6.3-8.2) g/dL Albumin (3.5-5.0) g/dL Amylase (30-110) U/L Lipase (23-300) U/L Coronavirus (PCR) Detected A (Not Detectd) - EKG Data EKG Comments: Sinus bradycardia with a shortened MD interval, ventricular rate 58 bpm, MD interval 117 ms QRS duration 87 ms, QT/QTC 432/429 ms, PRT axes 69, -67, -18. - Radiology Data Radiology results: report reviewed, image reviewed CT brain cervical spine without contrast shows no acute intracranial process. No evidence of cervical spine fracture. Mild degenerative disc disease. Chest x-ray two-view shows no acute cardiopulmonary process/disease. Disposition Clinical Impression: Syncope, COVID Disposition: HOME SELF-CARE Condition: Stable Instructions (If sedation given, give patient instructions): COVID-19 (Coronavirus Disease 2019) (ED), Syncope (ED) Additional Instructions: Please quarantine for 5 days after testing positive and restart quarantine if symptoms worsen. Please utilize Tylenol as needed for fevers and pain. Taking vitamin C, Zinc, vitamin D 50 mcg, and melatonin may help symptom recovery. Please complete antiviral course asked prescribed. Please follow-up with your primary care provider after your quarantine is complete. Please drink plenty of fluids to stay well hydrated avoiding caffeinated products. Please return to the Emergency Department if symptoms worsen or any other concerns. Prescriptions: Nirmatrelvir/Ritonavir [Paxlovid 2X150 mg-100 mg (Eua)] 1 each PO BID 5 Days #10 tab Is patient prescribed a controlled substance at d/c from ED?: No Referrals: Elif Ling DO [Primary Care Provider] - 1-2 days Time of Disposition: 14:34
[2022-01-02 12:16] LABS: Basophils # (A) 0.1 k/uL (0-0.2); Basophils % (A) 1 %; Eosinophils % (A) 0 %; HCT 47.8 % (34.0-46.0); HGB 16.7 gm/dL (11.4-16.0); Lymphocytes # (A) 1.3 k/uL (1.0-4.8); Lymphocytes % (A) 35 %; MCH 33.1 pg (25.0-35.0); MCHC 35.1 g/dL (31.0-37.0); MCV 94.4 fL (80.0-100.0); Mean Platelet Volume 8.5; Monocytes # (A) 0.4 k/uL (0-1.0); Monocytes % (A) 11 %; Neutrophils # (A) 1.7 k/uL (1.3-7.7); Neutrophils % (A) 49 %; Platelet Count 216 k/uL (150-450); RBC 5.06 m/uL (3.80-5.40); RDW 13.1 % (11.5-15.5); WBC 3.6 k/uL (3.8-10.6)
[2022-01-02 12:27] LABS: Calcium 9.9 mg/dL (8.4-10.2); Total Bilirubin 0.8 mg/dL (0.2-1.3)
[2022-01-02 12:32] LABS: INR 0.9 (<1.2); Partial Thromboplastin Time 23.7 sec (22.0-30.0); Prothrombin Time 10.4 sec (9.0-12.0)
--- NOTE | 2022-01-02 12:50 | CT ---
EXAMINATION TYPE: CT brain cspine wo con CT DLP: 1274.1 mGycm, Automated exposure control for dose reduction was used. DATE OF EXAM: 01/02/2022 12:37 PM COMPARISON: CT thoracolumbar spine 02/11/2018. CLINICAL INDICATION:Female, 56 years old with history of syncope/fall; Syncope/fall TECHNIQUE: Brain: Multiple axial CT images of the brain were obtained without IV contrast. Cspine: Axial CT images from the skull base to the inferior aspect of T2 we obtained without intraven ous contrast. Coronal and sagittal reformatted images were also reviewed. FINDINGS: Brain: Extra-axial spaces: No abnormal extra-axial fluid collections. Ventricular system: Within normal limits Cerebral parenchyma: No acute intraparenchymal hemorrhage or mass effect. The jordan-white junction is well differentiated. Cerebellum: Unremarkable. Mass effect: No evidence of midline shift. Intracranial vasculature: unremarkable Soft tissues: Normal. Calvarium/osseous structures: No depressed skull fracture. Paranasal sinuses and mastoid air cells: Clear. Visualized orbits: Orbital contents are intact. Cervical spine: Fracture: None. Osseous structures: Multilevel degenerative disc disease changes with endplate spurring and disc oste ophyte complex's. Vertebral alignment: Stable grade 1 anterolisthesis of T2 on T3. Straightening of the cervical spine Spinal canal/Neural Foramina: Disc osteophyte complexes at C5-C6 with at least mild spinal canal sten osis. No evidence for significant neural foraminal stenosis. Neck soft tissues: Prevertebral soft tissues are within normal limits. Other: The airway is patent. Biapical pleural-parenchymal scarring with right greater than left. IMPRESSION: 1. No acute intracranial process. 2. No evidence of cervical spine fracture. 3. Mild multilevel degenerative disc disease.
--- NOTE | 2022-01-02 12:52 | XR ---
EXAMINATION TYPE: XR chest 2V DATE OF EXAM: 01/02/2022 12:36 PM COMPARISON: Chest radiographs from 03/17/2019. TECHNIQUE: XR chest 2V Frontal and lateral views of the chest. CLINICAL INDICATION:Female, 56 years old with history of syncope; FINDINGS: Lungs/Pleura: There is no evidence of pleural effusion, focal consolidation, or pneumothorax. Pulmonary vascularity: Unremarkable. Heart/mediastinum: Cardiomediastinal silhouette is unremarkable. Musculoskeletal: No acute osseous pathology. Dextrocurvature of the thoracic spine. IMPRESSION: No acute cardiopulmonary disease/process.
[2022-01-02 13:09] LABS: Potassium 4.9 mmol/L (3.5-5.1)
[2022-01-02 13:10] LABS: Magnesium 2.1 mg/dL (1.6-2.3)
[2022-01-02 13:36] VITALS: RESP 16
[2022-01-02 15:00] VITALS: BP 109/77; PULSE 65
== END 2022-01-02 15:00 | disposition home or self-care (01) ==
LOC: EC 11:35
DX: U07.1 COVID-19 (principal); R55 Syncope and collapse; Z88.5 Allergy status to narcotic agent
CPT/HCPCS: 93005; 80053; 82150; 83690; 83735; 84484; 85025; 85610; 85730; 87635; 71046; 72125; 70450; 99284; 96360; 96361; 96372; J1885; 36415; 99285

== ENCOUNTER 2022-01-06 18:34 | Emergency (ER) | payer BC ==
[2022-01-06] MEDS ORDERED: SODIUM CHLORIDE 0.9% 1,000 ML IV STA (22:19)
[2022-01-06] MEDS ORDERED: ONDANSETRON 4 MG/2 ML VIAL IVP STA (22:19)
--- NOTE | 2022-01-06 22:19 | ED ---
General Adult HPI - General Chief complaint: Nausea/Vomiting/Diarrhea Stated complaint: COVID+ Time Seen by Provider: 01/06/22 22:13 Source: patient, family, RN notes reviewed Mode of arrival: ambulatory Limitations: no limitations - History of Present Illness Initial comments: Who was diagnosed with COVID-19 last Sunday. She has been ill since then. Patient had headache, fever, body aches, mild cough, patient has had a diminished appetite with vomiting which has progressed since the illness. Patient became lightheaded on Sunday and had a syncopal episode was seen here. Patient states she is still having problems holding down any significant fluids. She is denying any abdominal pain. No shortness of breath. No chest pain. POSITIVE body aches, no changes in vision or hearing, no sore throat or difficulty with speech, no neck pain, no chest pain or shortness of breath, no abdominal pain, no changes in urination or bowel movements, no numbness or tingling, no extremity pain, no skin rashes or lesions. Patient states she was given the antiviral medication for COVID-19 but has been and I take it due to the diminished appetite and vomiting Past medical, surgical, social, and family history reviewed. - Related Data Home Medications Medication Instructions Recorded Confirmed Topiramate 50 mg PO TID 01/16/19 03/06/20 Hyoscyamine Sulfate [Levbid] 0.375 mg PO BID 03/17/19 03/06/20 valACYclovir HCL [Valtrex] 500 mg PO DAILY 03/17/19 03/06/20 Previous Rx's Medication Instructions Recorded Nirmatrelvir/Ritonavir [Paxlovid 1 each PO BID 5 Days #10 tab 01/02/22 2X150 mg-100 mg (Eua)] Allergies Allergy/AdvReac Type Severity Reaction Status Date / Time codeine Allergy Unknown Verified 01/06/22 19:30 Review of Systems ROS Statement: Those systems with pertinent positive or pertinent negative responses have been documented in the HPI. ROS Other: All systems not noted in ROS Statement are negative. Past Medical History Past Medical History: No Reported History Additional Past Medical History / Comment(s): Migraine headaches History of Any Multi-Drug Resistant Organisms: None Reported Past Surgical History: Appendectomy, Cholecystectomy, Orthopedic Surgery Additional Past Surgical History / Comment(s): knee Past Psychological History: No Psychological Hx Reported Smoking Status: Never smoker Past Alcohol Use History: None Reported Past Drug Use History: None Reported General Exam - General Exam Comments Initial Comments: Patient appears to be ill but not toxic. Patient's vital signs are stable, patient afebrile. Patient does have capillary refill about 3 seconds. However actually has some moist mucous membranes. No respiratory distress. Limitations: no limitations General appearance: alert, in no apparent distress Head exam: Present: atraumatic, normocephalic, normal inspection Eye exam: Present: normal appearance, PERRL, EOMI. Absent: scleral icterus, conjunctival injection, periorbital swelling ENT exam: Present: normal exam, normal oropharynx, mucous membranes moist, normal external ear exam. Absent: mucous membranes dry Neck exam: Present: normal inspection, full ROM. Absent: tenderness, meningismus, lymphadenopathy Respiratory exam: Present: normal lung sounds bilaterally. Absent: respiratory distress, wheezes, rales, rhonchi, stridor, chest wall tenderness, accessory muscle use, decreased breath sounds, prolonged expiratory Cardiovascular Exam: Present: regular rate, normal rhythm, normal heart sounds. Absent: systolic murmur, diastolic murmur, rubs, gallop, clicks GI/Abdominal exam: Present: soft, normal bowel sounds. Absent: distended, tenderness, guarding, rebound, rigid Extremities exam: Present: normal inspection, full ROM, normal capillary refill. Absent: tenderness, pedal edema, joint swelling, calf tenderness Back exam: Present: normal inspection Neurological exam: Present: alert, oriented X3, CN II-XII intact Psychiatric exam: Present: normal affect, normal mood Skin exam: Present: warm, dry, intact, normal color. Absent: rash Course Vital Signs 01/06/22 19:26 Temperature 98.1 F Pulse Rate 58 L Respiratory 22 Rate Blood Pressure 120/77 O2 Sat by Pulse 100 Oximetry - Reevaluation(s) Reevaluation #1: 01/07/22 01:10 Medical record is reviewed Patient asking for something for her generalized body aches Patient is informed of results and questions answered Patient in no distress Reevaluation #2: 01/07/22 02:25 Patient reevaluated is doing much better. No subsequent vomiting after anti- emetics. Patient able to hold down fluids. No distress. Stable vital signs. Medical Decision Making - Medical Decision Making The patient's vital signs, she can likely be discharged. However we'll order basic labs, hydration, antiemetics, and for reevaluation. Patient has no abdominal tenderness. This is unlikely to be other etiology. Symptoms consistent with COVID-19 infection. Not consistent with intra- abdominal pathology otherwise. No consistent with cardiopulmonary disease. Patient counseled on hydration strategies, clear liquid diet, quarantine measures, and follow-up. Patient was told to return to the ER for any signs or symptoms worsen. Told to return immediately if any other problems arise. All questions answered. Treatment plan discussed. Patient in agreement Every effort has been made to ensure accuracy of this dictation. However, due to the limitations of electronic medical records and dictation devices, errors in charting still occur. 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 Palacios - Lab Data Result diagrams: 01/07/22 00:03 01/07/22 00:04 Lab Results 01/07/22 01/07/22 Range/Units 00:03 00:04 WBC 2.8 L (3.8-10.6) k/uL RBC 4.82 (3.80-5.40) m/uL Hgb 15.0 (11.4-16.0) gm/dL Hct 45.1 (34.0-46.0) % MCV 93.7 (80.0-100.0) fL MCH 31.1 (25.0-35.0) pg MCHC 33.2 (31.0-37.0) g/dL RDW 12.6 (11.5-15.5) % Plt Count 180 (150-450) k/uL MPV 8.5 Neutrophils % 35 % Lymphocytes % 54 % Monocytes % 5 % Eosinophils % 3 % Basophils % 1 % Neutrophils # 1.0 L (1.3-7.7) k/uL Lymphocytes # 1.5 (1.0-4.8) k/uL Monocytes # 0.2 (0-1.0) k/uL Eosinophils # 0.1 (0-0.7) k/uL Basophils # 0.0 (0-0.2) k/uL Sodium 135 L (137-145) mmol/L Potassium 4.3 (3.5-5.1) mmol/L Chloride 99 (98-107) mmol/L Carbon Dioxide 28 (22-30) mmol/L Anion Gap 8 mmol/L BUN 13 (7-17) mg/dL Creatinine 0.65 (0.52-1.04) mg/dL Est GFR (CKD-EPI)AfAm >90 (>60 ml/min/1.73 sqM) Est GFR (CKD-EPI)NonAf >90 (>60 ml/min/1.73 sqM) Glucose 93 (74-99) mg/dL Calcium 9.1 (8.4-10.2) mg/dL Total Bilirubin 0.5 (0.2-1.3) mg/dL AST 35 (14-36) U/L ALT 39 H (4-34) U/L Alkaline Phosphatase 56 (38-126) U/L Total Protein 6.4 (6.3-8.2) g/dL Albumin 4.1 (3.5-5.0) g/dL Lipase 167 (23-300) U/L Disposition Clinical Impression: COVID-19, Nausea & vomiting, Dehydration Disposition: HOME SELF-CARE Condition: Good Instructions (If sedation given, give patient instructions): Acute Nausea and Vomiting (ED), COVID-19 (Coronavirus Disease 2019) (ED) Additional Instructions: SELF QUARANTINE DISCHARGE: As you are at risk for symptoms due to coronavirus, please stay home and stay away from others as much as possible. Please maintain social distance of 6 feet if possible. You should not return to work until at least 3 days (72 hours) have passed since recovery of symptoms. This defined as resolution of fever without the use of fever reducing medicines and improvement in respiratory symptoms (e.g,, cough, shortness of breath) Isolation can end at least 5 days after symptom onset and after fever ends for 24 hours (without the use of fever-reducing medication) and symptoms are improving, if these people can continue to properly wear a well-fitted mask around others for 5 more days after the 5-day isolation period. If you're still having symptoms at the end of 5 day period, isolate for an additional 5 days. More information about what to do if you are sick can be found on the CDC website at https://www.cdc.gov/coronavirus/2019-ncov/jd-yco-xmb-sick/bzlov-lvcb-feml.html Expect the symptoms to last for 7-14 days from onset. Use acetaminophen (Tylenol) as needed for discomfort. You can take a maximum of 1 gram every 6 hours for discomfort, with your total dose in 24 hours not exceeding 4 grams. Be sure to maintain hydration. Drink continuous water and/or items high in vitamin C, such as orange juice and/or lemonade. Unless you have high blood pressure, you may consider Sudafed (which is [id number]) for nasal congestion. I would suggest that a short acting Sudafed rather than the 24 hour Sudafed. For a cough you may take Mucinex or Robitussin. Also consider the use of Vicks Vapor Rub or your chest when you sleep. Use a humidifier that is cleaned frequently, in the bedroom at night. For Nausea /Vomiting/Diarrhea associated with your Illness: o Small frequent sips of room temperature liquids. o Diet: [employer] - If you are still experiencing discomfort and/or nausea please slowly advancing your diet using the BRAT Diet = bananas, rice, apples/apple sauce, toast. o With diarrhea avoid any dairy for 48 hours after symptoms resolved. o Continue with activity as tolerated. If your symptoms do get worse and you believe that the upper respiratory infection has developed into something else, such as pneumonia or severe dehydration, please return to the emergency department or follow-up with your primary care. But expect to be symptomatic for the days as indicated above GIVEN her symptoms, I believe it would be prudent to quarantine for another 5 days, then mask for another 5 days after that. Adhere to a clear liquid diet, insure that you're taking in some calories. Advance diet as tolerated. Use [id number] acetaminophen and/or ibuprofen for fever and body ache control. Is patient prescribed a controlled substance at d/c from ED?: No Referrals: Elif Ling DO [Primary Care Provider] - 01/12/22 Time of Disposition: 02:27
[2022-01-06] MEDS ORDERED: KETOROLAC 15 MG/ML 1 ML VIAL IVP STA (22:20)
[2022-01-07 00:37] LABS: Basophils % (A) 1 %; Eosinophils # (A) 0.1 k/uL (0-0.7); Eosinophils % (A) 3 %; HCT 45.1 % (34.0-46.0); Lymphocytes # (A) 1.5 k/uL (1.0-4.8); Lymphocytes % (A) 54 %; MCH 31.1 pg (25.0-35.0); MCHC 33.2 g/dL (31.0-37.0); MCV 93.7 fL (80.0-100.0); Mean Platelet Volume 8.5; Monocytes # (A) 0.2 k/uL (0-1.0); Monocytes % (A) 5 %; Neutrophils % (A) 35 %; Platelet Count 180 k/uL (150-450); RBC 4.82 m/uL (3.80-5.40); RDW 12.6 % (11.5-15.5); WBC 2.8 k/uL (3.8-10.6)
[2022-01-07 00:48] LABS: ALT 39 U/L (4-34); AST 35 U/L (14-36); African American GFR (CKD) >90 (>60 ml/min/1.73 sqM); Albumin 4.1 g/dL (3.5-5.0); Alkaline Phosphatase 56 U/L (38-126); Anion Gap 8 mmol/L; Blood Urea Nitrogen 13 mg/dL (7-17); Calcium 9.1 mg/dL (8.4-10.2); Carbon Dioxide 28 mmol/L (22-30); Chloride 99 mmol/L (98-107); Glucose 93 mg/dL (74-99); Lipase 167 U/L (23-300); Non-African American GFR(CKD) >90 (>60 ml/min/1.73 sqM); Potassium 4.3 mmol/L (3.5-5.1); Sodium 135 mmol/L (137-145); Total Bilirubin 0.5 mg/dL (0.2-1.3); Total Protein 6.4 g/dL (6.3-8.2)
[2022-01-07] MEDS ORDERED: SODIUM CHLORIDE 0.9% 1,000 ML IV ONE (01:10)
[2022-01-07] MEDS ORDERED: MORPHINE SULFATE 4 MG/ML SYRINGE IV STA (01:10)
[2022-01-07] MEDS ORDERED: ONDANSETRON 4 MG ODT STARTER PACK 2 TAB BTL PO STA (02:24)
[2022-01-07 02:25] VITALS: BP 124/84; PULSE 78; RESP 18; TEMP 97.5
== END 2022-01-07 02:50 | disposition home or self-care (01) ==
LOC: EC 18:34
DX: U07.1 COVID-19 (principal); Z88.5 Allergy status to narcotic agent
CPT/HCPCS: 80053; 83690; 85025; 99284; 96374; 96375; 96361; J2270; J2405; J1885; S0119; 36415

== ENCOUNTER → 2022-08-09 | Outpatient (CLI) | payer BC ==
--- NOTE | 2022-08-09 09:05 | CT ---
EXAMINATION TYPE: CT angio head CT DLP: 1531.90 mGycm, Automated exposure control for dose reduction was used. DATE OF EXAM: 08/09/2022 8:39 AM COMPARISON: CT brain and 522. CLINICAL INDICATION:Female, 56 years old with history of G43.909 Migraine,R42.780 Dizziness and giddi ness; Migraine, Dizziness and giddiness TECHNIQUE: Axially acquired helical CT angiogram of the head and neck was obtained with contrast util izing 100 cc of Isovue-370 administered intravenously. Axial images are supplemented with 3D reconstr uctions which were post-processed at an independent workstation. NASCET criteria used. FINDINGS: Vertebral arteries: The vertebral arteries are patent. Vertebral artery dominance: Codominant Basilar artery: The basilar artery is intact. The basilar artery bifurcation is normal. Internal Carotid arteries: The cervical, petrous, cavernous and supraclinoid segments are normal. HORTENCIA: Patent with no evidence of aneurysm. ACOM: Present without evidence of aneurysm. MCA: Patent with no evidence of aneurysm. APARTMENT MAINTENANCE: Patent with no evidence of aneurysm. origin on the left. PCOM: Hypoplastic right. origin on the left. Dural sinuses: Patent. IMPRESSION: No evidence of high-grade stenosis or intracranial aneurysm.
== END | disposition home or self-care (01) ==
LOC: RADCTMAIN 07:31
PROVIDERS: ATTEND Psychiatry & Neurology Neurology
DX: G43.909 Migraine, unspecified, not intractable, without status migrainosus (principal); R42 Dizziness and giddiness
CPT/HCPCS: 70496; Q9967

== ENCOUNTER → 2022-10-03 | Outpatient (CLI) | payer BC ==
--- NOTE | 2022-10-08 21:46 | MR ---
EXAMINATION TYPE: MR knee LT wo con DATE OF EXAM: 10/03/2022 9:40 PM CLINICAL INDICATION:Female, 56 years old with history of M25.562 left knee pain; Left knee pain, swe lling, and limited movement for 3 weeks COMPARISON: None TECHNIQUE: Multi planar, multi sequence imaging was performed of the knee including: Triplane proton density fat-saturated images and T1-weighted imaging. No Gadolinium was given. IV Contrast: cc (none if empty) FINDINGS: Medial meniscus: Posterior medial meniscus root tear series 501 image 26. High signal within the meniscus without evidence for source Medial femorotibial cartilage: Cartilage thinning without full-thickness defect. Medial collateral ligament: Intact with some mild signal surrounding it. Lateral meniscus: Intact without evidence of tear. Intrinsic high T1 signal compatible with myxoi d degeneration. Lateral lung is intact with increase in signal Lateral femorotibial cartilage: Cartilage thinning without full-thickness defect. Lateral collateral ligament complex: Increased PD signal within the LCL proper at the femoral att achment. Patellofemoral alignment: Normal Patellofemoral cartilage: Scattered areas of cartilage thinning worse in the lateral patellar fac et with subchondral bony edema suggesting full-thickness fissuring. Extensor mechanism: Intact. High PD signal in the semimembranosus tendon near the insertion with a 1.3 cm intrasubstance tear (ax ial image 15 and sagittal image 27). The patellar tendon, quadriceps tendon, IT band, pes anserinus tendons, and biceps femoris tendon are all within normal limits .Additional increased signal within the popliteus tendon and muscle. Anterior cruciate ligament: Intact. Posterior cruciate ligament: Intact with increased signal. Bone marrow: High T2 heterogenous signal within the medial femoral condyle measuring 13 x 12 mm. There is nonaggressive features. Joint/bursal fluid: Small moderate joint effusion is present. Small Barnett's cyst noted measuring up to 17 mm which is leaking. Soft tissues: No evidence of organizing fluid collection. IMPRESSION: 1. Full-thickness posterior root medial meniscus tear. 2. Bony edema within the mid aspect of the medial tibial plateau felt to be secondary to nondepresse d subchondral impaction injury. 3. Distal left medial femur condyle and bony lesion favored represent a enchondroma. 4. Strain at the semimembranosus insertion with a 1.3 cm intrasubstance tear. 5. Grade 1 MCL tear. 6. Grade 1 PCL sprain 7. Moderate patellofemoral compartmental OA. Mild medial compartmental OA. 8. Grade 1 sprain of the LCL proper at the femoral attachment. Additional contusion of the popliteus tendon and mild popliteus muscle strain 9. Small to moderate knee joint effusion and mild chronic synovitis. 10. Small leaking Barnett's cyst.
== END | disposition home or self-care (01) ==
LOC: RADMRIMAIN 21:00
PROVIDERS: ATTEND Orthopaedic Surgery
DX: S83.242A Other tear of medial meniscus, current injury, left knee, initial encounter (principal); M25.462 Effusion, left knee; M71.22 Synovial cyst of popliteal space [Baker], left knee; M65.9 Synovitis and tenosynovitis, unspecified; M17.12 Unilateral primary osteoarthritis, left knee

== ENCOUNTER → 2022-11-07 | Outpatient (CLI) | payer BC ==
[2022-11-07 16:37] LABS: Basophils # (A) 0.04 X 10*3/uL (0.00-0.10); Basophils % (A) 0.9 %; Eosinophils # (A) 0.15 X 10*3/uL (0.04-0.35); Eosinophils % (A) 3.3 %; HCT 41.7 % (37.2-46.3); HGB 13.9 d/dL (12.0-15.0); Lymphocytes # (A) 1.66 X 10*3/uL (0.90-5.00); Lymphocytes % (A) 36.2 %; MCH 32.5 pg (27.0-32.0); MCHC 33.3 d/dL (32.0-37.0); MCV 97.4 FL (80.0-97.0); Mean Platelet Volume 10.6 FL (9.5-12.2); Monocytes # (A) 0.42 X 10*3/uL (0.20-1.00); Monocytes % (A) 9.2 %; NRBC Per 100 WBC 0 X 10*3/uL (0.00-0.01); Neutrophils % (A) 50.2 %; Platelet Count 263 X 10*3/uL (140-440); RBC 4.28 X 10*6/uL (4.10-5.20); WBC 4.58 X 10*3/uL (4.50-10.00)
[2022-11-07 17:51] LABS: BUN/Creat Ratio 18.62 Ratio (12.00-20.00); Blood Urea Nitrogen 14.9 mg/dL (9.0-27.0); Calcium 9.4 mg/dL (8.7-10.3); Carbon Dioxide 24.3 mmol/L (21.6-31.8); Chloride 103 mmol/L (96-109); Glucose 86 mg/dL (70-110); Potassium 4.3 mmol/L (3.5-5.5); Sodium 139 mmol/L (135-145)
== END | disposition home or self-care (01) ==
LOC: LABPAT 09:00
PROVIDERS: ATTEND Orthopaedic Surgery
DX: Z01.818 Encounter for other preprocedural examination (principal); M23.92 Unspecified internal derangement of left knee; I48.92 Unspecified atrial flutter; R94.31 Abnormal electrocardiogram [ECG] [EKG]
CPT/HCPCS: 80048; 85025; 93005

== ENCOUNTER 2022-11-24 07:34 | Day surgery (SDC) | payer BC ==
--- NOTE | 2022-11-23 08:30 | P.HPOR ---
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 She is having persistent pain along with catching and locking however since. She notes diffuse pain with weightbearing activities. She's been limping. She tried medications in addition to an injection with temporary partial relief. Review of Systems As per HPI Past Medical History Past Medical History: Musculoskeletal Disorder Additional Past Medical History / Comment(s): Migraine headaches, IBS History of Any Multi-Drug Resistant Organisms: None Reported Past Surgical History: Appendectomy, Cholecystectomy, Orthopedic Surgery Additional Past Surgical History / Comment(s): gal knee surgeries Past Anesthesia/Blood Transfusion Reactions: No Reported Reaction Additional Past Anesthesia/Blood Transfusion Reaction / Comment(s): woke up during a knee surg. once Smoking Status: Former smoker - Past Family History Mother Family Medical History: No Reported History Medications and Allergies Home Medications Medication Instructions Recorded Confirmed Type Hyoscyamine Sulfate [Levbid] 0.375 mg PO BID 03/17/19 11/15/22 History valACYclovir HCL [Valtrex] 500 mg PO DAILY 03/17/19 11/15/22 History Butalbit/Acetamin/Caff/Codeine 1 each PO Q8H PRN 11/15/22 11/15/22 History [Butalbit/Acetamin/Caff/Codeine 59-820-51-30MG] SUMAtriptan succinate [Imitrex] 50 mg PO DIRECTED PRN 11/15/22 11/15/22 History Allergies Allergy/AdvReac Type Severity Reaction Status Date / Time codeine Allergy Unknown Verified 11/15/22 14:29 Physical Examination - Knee left Appearance: effusion Effusion grade: grade 1 Tenderness with palpation: medial Pain: throughout ROM Gait: limping ROM: extension: -10 degrees ROM: flexion: 130 degrees Crepitus with motion: Yes Strength: extension: 5/5 Strength: flexion: 5/5 Meniscal tests: medial meniscal tests: positive, medial joint line pain: positive Results The patient is a well-developed well-nourished female approximately 5 foot 5, 128 pounds of mesomorphic habitus. HEENT exam is nonfocal, neck is supple. She has painless passive motion of her left hip. Straight leg raise negative. Chinyere's elicits medial pain. Her distal neurovascular exam appears intact in the left lower extremity. - Diagnostic results Knee MRI: image reviewed (MRI of the left knee is reviewed and shows a posterior medial meniscal tear along with patellofemoral degenerative joint disease.) Assessment and Plan Assessment: Left knee internal derangement/symptomatic medial meniscal tear Plan: I talked to the patient length regarding her condition along with treatment options. At this point she's quite symptomatic having pain and mechanical symptoms despite attempted conservative measures. After a thorough discussion she opts to proceed with surgery. We will plan to proceed with left knee arthroscopy with probable partial medial meniscectomy. We will likely perform that as an outpatient procedure. Risks and benefits were discussed at length in layman's terms.
[2022-11-24] MEDS ORDERED: METOCLOPRAMIDE 5 MG/ML 2 ML VIAL IVP PRN (07:35)
[2022-11-24] MEDS ORDERED: ONDANSETRON 4 MG/2 ML VIAL IVP ONE (07:35)
[2022-11-24] MEDS ORDERED: DEXAMETHASONE SOD PHOSPHATE 4 MG/ML 1 ML VIAL IV ONE (07:35)
[2022-11-24] MEDS ORDERED: LIDOCAINE 1% (10MG/ML) FOR IV START INTRADERMA PRN (07:35)
[2022-11-24] MEDS ORDERED: LACTATED RINGERS 1,000 ML IV SCH (07:35)
[2022-11-24] MEDS ORDERED: LIDOCAINE 2% INJ 20 MG/ML (2 ML VIAL) ONE (08:09)
[2022-11-24] MEDS ORDERED: fentaNYL (PF) 50 MCG/ML 2 ML AMP ONE (08:09)
[2022-11-24] MEDS ORDERED: PROPOFOL 10 MG/ML 20 ML VIAL IV ONE (08:09)
[2022-11-24] MEDS ORDERED: MIDAZOLAM 2 MG/2 ML VIAL ONE (08:09)
[2022-11-24] MEDS ORDERED: EPINEPHrine (PF) 1 ML in SODIUM CHLORIDE 0.9% IRRIGATIO 3,000 ML IRRIGATION ONE (08:33)
--- NOTE | 2022-11-24 09:08 | P.OP ---
Date of Procedure: 11/24/22 Preoperative Diagnosis: Left knee internal derangement Postoperative Diagnosis: Left knee posterior medial meniscal tear/middle one third lateral meniscal tear Procedure(s) Performed: Left knee arthroscopic partial medial meniscectomy/partial lateral meniscectomy Anesthesia: CHELO Surgeon: Claudio Hernandez Estimated Blood Loss (ml): 10 Pathology: none sent Condition: stable Disposition: PACU Indications for Procedure: The patient's a 57-year-old female who presents with progressive left knee pain and mechanical symptoms after a recent injury despite conservative measures. A discussion of the risks and benefits of operative intervention versus continued conservative measures was made with patient. She opted to proceed with surgery. Operative risks to include infection, neurovascular injury, development of blood clots, possible incomplete resolution of symptoms, possible worsening symptoms and need for subsequent procedures was discussed. Informed consent was obtained. Operative Findings: As below Description of Procedure: The patient was brought to the operating room, and after induction of general anesthesia examined the left knee. Collaterals were stable, Daniel was negative, and posterior drawer was negative. The left lower extremity was prepped and draped in a normal fashion. A superior lateral portal was made through a 3 mm skin incision superior and lateral to the patella. This was used for outflow. A lateral portal was made through a 5 mm vertical skin incision lateral to the patella tendon above the joint line. Diagnostic arthroscopy was performed. On inspection of the medial compartment, a complex tear involving the posterior medial meniscus was noted in the white-red junction. This was debrided back to stable base with straight baskets and a motorized shaver. The remaining medial meniscus was stable and intact. Grade 2-3 chondral changes were noted diffusely in the medial compartment. On inspection of the notch, the anterior cruciate ligament appeared to be intact. On inspection of the lateral compartment, a radial tear involving the middle one third of the lateral meniscus in the white-white junction was noted. The stability back to stable base with a motorized shaver.. On inspection of the patellofemoral articulation grade 3 chondral changes were noted diffusely. The gutters were clear debris. The knee was then thoroughly irrigated. The portals were closed with Steri-Strips. A sterile dressing was applied in addition to a compression stocking. The patient was awoken from general anesthesia and transferred to recovery room in good condition. Blood loss was estimated at 10 mL. No complications were incurred.
[2022-11-24] MEDS: HYDROmorphone 0.5 MG/0.5 ML SYRINGE IVP PRN ×2 (09:24→09:31)
[2022-11-24 09:27] VITALS: TEMP 96.8
[2022-11-24 10:14] VITALS: PULSE 52
[2022-11-24 10:31] VITALS: BP 115/75; RESP 16
== END 2022-11-24 10:57 | disposition home or self-care (01) ==
LOC: OR 07:34
PROVIDERS: ATTEND Orthopaedic Surgery
DX: S83.242A Other tear of medial meniscus, current injury, left knee, initial encounter (principal); Z90.89 Acquired absence of other organs; Z90.49 Acquired absence of other specified parts of digestive tract; Z87.891 Personal history of nicotine dependence; Z79.624 Long term (current) use of inhibitors of nucleotide synthesis; Z79.899 Other long term (current) drug therapy; Z88.5 Allergy status to narcotic agent; X58.XXXA Exposure to other specified factors, initial encounter
CPT/HCPCS: 29880; J2250; J1100; J2405; J0690; J0171; J3010; J2704; J1170; J2001

== ENCOUNTER → 2023-09-07 | Outpatient (CLI) | payer BC ==
[2023-09-07 14:31] LABS: Basophils # (A) 0.03 X 10*3/uL (0.00-0.10); Basophils % (A) 0.6 %; HCT 39.5 % (37.2-46.3); HGB 13.3 g/dL (12.0-15.0); Immature Grans, Automated 0 %; Lymphocytes # (A) 1.38 X 10*3/uL (0.90-5.00); Lymphocytes % (A) 27.8 %; MCH 30.8 pg (27.0-32.0); MCHC 33.7 g/dL (32.0-37.0); MCV 91.4 FL (80.0-97.0); Mean Platelet Volume 10.6 FL (9.5-12.2); Monocytes # (A) 0.53 X 10*3/uL (0.20-1.00); Monocytes % (A) 10.7 %; NRBC Per 100 WBC 0 X 10*3/uL (0.00-0.01); Neutrophils # (A) 2.93 X 10*3/uL (1.80-7.70); Neutrophils % (A) 58.9 %; Platelet Count 252 X 10*3/uL (140-440); RBC 4.32 X 10*6/uL (4.10-5.20); RDW 12.3 % (11.5-14.5); WBC 4.97 X 10*3/uL (4.50-10.00)
[2023-09-07 14:52] LABS: Erythrocyte Sedimentation Rate <1 mm/Hr (0-30)
[2023-09-07 18:13] LABS: C Reactive Protein <0.30 mg/dL (0.00-0.80); Rheumatoid Factor, Qnt <15 IU/mL (0-15); Uric Acid 3.7 mg/dL (2.9-7.7)
[2023-09-07 19:21] LABS: Anti-DNA, DS unit <1.0 IU/mL; DNA Double-Stranded Negative (Negative)
[2023-09-08 10:49] LABS: HLA B27 NEGATIVE
== END | disposition home or self-care (01) ==
LOC: LABWHC1 08:29
PROVIDERS: ATTEND Orthopaedic Surgery
DX: M25.50 Pain in unspecified joint (principal)
CPT/HCPCS: 36415; 84550; 85025; 85652; 86038; 86140; 86225; 86431; 86618; 86812

== ENCOUNTER → 2023-10-18 | Outpatient (CLI) | payer BC ==
--- NOTE | 2023-10-18 13:44 | US ---
EXAMINATION TYPE: US thyroid st tissue head/neck DATE OF EXAM: 10/18/2023 COMPARISON: NONE CLINICAL INDICATION: Female, 57 years old with history of R22.1 LOCALIZED SWELLING, MASS AND LUMP, NE CK; Lump felt when swallowing neck x 2 months. GLAND SIZE: Right Lobe: 5.7 x 1.7 x 1.8 cm Overall Parenchyma: heterogeneous Left Lobe: 4.7 x 1.6 x 1.7 cm Overall Parenchyma: heterogeneous Isthmus Thickness: 0.20 cm NODULES RIGHT: # of nodules measured on right: 1. Additional less than 5 mm nodule seen, not fully measured . 1. 1.4 X 1.0 x 0.9 cm, upper lateral, solid or almost completely solid, isoechoic nodule, which is wider than tall, with smooth margins, without echogenic foci. Prior size: No prior LEFT: # of nodules measured on left: 0 ISTHMUS: # of nodules measured in the isthmus: 0 Bilateral neck scanned, no evidence of lymphadenopathy. IMPRESSION: 1. No thyromegaly. 2. Single 1.4 cm TR 3 nodule in the right lobe. 2017 ACR TI-RADS LEVEL: TR 3 *Highest TI-RADS level nodule reported
== END | disposition home or self-care (01) ==
LOC: RADUSWWP 06:51
PROVIDERS: ATTEND Family Medicine
DX: R22.1 Localized swelling, mass and lump, neck (principal); E04.1 Nontoxic single thyroid nodule
CPT/HCPCS: 76536

== ENCOUNTER 2024-01-07 08:26 | Day surgery (SDC) | payer BC ==
[2024-01-07 10:14] VITALS: RESP 16; TEMP 97.5
[2024-01-07 11:17] VITALS: BP 135/76; PULSE 68
--- NOTE | 2024-01-07 11:22 | US ---
EXAMINATION TYPE: US FNA first lesion DATE OF EXAM: 01/07/2024 11:00 AM REASON FOR EXAM: 58-year-old female E04.1 non toxic thyroid nodule RADIOLOGIST: Dr. Chandler PROCEDURE: An initial scanning showed echogenic TR 3 nodule at the right lobe measuring 1.3 x 0.8 x 0.9 cm. This was targeted for biopsy. The procedure, along with the risks and complications were discussed with the patient. Patient agreed to proceed with the procedure. A consent was signed and placed in patient's chart. Maximum sterile barrier technique was utilized. Timeout was performed by myself. The right side of th e neck was sterilely prepped and draped in the usual fashion. 10 milliliters of 1% Lidocaine were uti lized to anesthetize the superficial and deep soft tissues at each nodule in turn. Following that, under ultrasound guidance, 5 passes were made into each nodule with 5 cc syringe suct ion. After each pass, the sample was placed on a slide and then sent for pathology. Last sample was p laced for DNA molecular testing. The procedure was challenging due to patient's anxiety, heavy breathing, repeated swallowing, and pro ximity to the ICA. Upon conclusion, hemostasis was achieved, and patient was discharged home in satisfactory condition. IMPRESSION: Successful FNA of the 1.3 cm TR3 right thyroid lobe nodule. Pathology pending.
== END 2024-01-07 11:17 | disposition home or self-care (01) ==
LOC: RADPROMAIN 08:26
PROVIDERS: ATTEND Internal Medicine
DX: E04.1 Nontoxic single thyroid nodule (principal)
CPT/HCPCS: 10005; 88173; 88305

== ENCOUNTER → 2024-02-22 | Outpatient (CLI) | payer BC ==
--- NOTE | 2024-02-22 09:34 | US ---
EXAMINATION TYPE: US abdomen comp/pelvis limited DATE OF EXAM: 02/22/2024 COMPARISON: Renal ultrasound 01/28/2019 CLINICAL INDICATION: Female, 58 years old with history of R10.9 ABDOMINAL PAIN, R10.12LEFT UPPER QUAD RANT PA; Left flank pain TECHNIQUE: Grayscale color Doppler imaging of the abdomen and pelvis. FINDINGS: EXAM MEASUREMENTS: Liver Length: 14.3 cm Gallbladder Wall: Surgically absent CBD: 0.8 cm Spleen: 8.9 cm Right Kidney: 10.4x3.2x6.6 cm Left Kidney: 11.1x4.5x4.1 cm Pancreas: duct dilated to 1mm Liver: wnl Gallbladder: Surgically absent CBD: dilated, post jagdeep Spleen: wnl Right Kidney: No hydronephrosis or masses seen Left Kidney: No hydronephrosis or masses seen Upper IVC: wnl Abd Aorta: Ectatic proximal abdominal aorta measuring up to 2.7 cm Bladder: not distended Exam is limited by bowel gas and rib shadows. Urinary bladder is nondistended which limits evaluation . Upper apices within normal limits. Ectatic proximal abdominal aorta measured 2.7 cm. No hydronephro sis, shadowing calculi, or solid renal masses. Spleen is within normal limits. Gallbladder surgically absent with mild prominence of the common bile duct which can be seen with cholecystectomy. Liver is within normal limits without focal lesion. Pancreas within normal limits. IMPRESSION: 1. No ultrasound evidence of acute process. 2. Post cholecystectomy changes. 3. Ectatic proximal abdominal aorta measuring up to 2.7 cm. [facility], , 02/22/2024 9:31 AM
== END | disposition home or self-care (01) ==
LOC: RADUSWWP 07:04
PROVIDERS: ATTEND Family Medicine
CPT/HCPCS: 76700; 76857

== ENCOUNTER → 2024-08-15 | Outpatient (CLI) | payer BC ==
--- NOTE | 2024-08-18 11:51 | MM ---
Reason for Exam: Screening (asymptomatic). Last mammogram was performed 2 year(s) and 4 month(s) ago. Patient History: Menarche at age 12. First Full-Term at age 21. Postmenopausal. Patient has history of breast feeding. Patient used Hormonal Contraceptives for 5 years. Paternal aunt had breast cancer, age 36. Risk Values: Farhana 5 year model risk: 1.2%. NCI Lifetime model risk: 6.9%. Prior Study Comparison: 01/16/2014 Bilateral Screening Mammogram, [facility]. 05/30/2019 Bilateral Screening Mammogram, [facility] . 04/26/2022 Bilateral Screening Mammogram, [facility] . Tissue Density: The breasts are heterogeneously dense, which may obscure small masses. Findings: Analyzed By CAD. There is no suspicious group of microcalcifications or new suspicious mass in either breast. Overall Assessment: Benign, BI-RAD 2 Management: Screening Mammogram of both breasts in 1 year. . Patient should continue monthly self-breast exams. A clinical breast exam by your physician is recommended on an annual basis. This exam should not preclude additional follow-up of suspicious palpable abnormalities. Note on Farhana scores and lifetime risk: 1. A Farhana score greater than 3% is considered moderate risk. If this is the case, consider specialist referral to assess eligibility for a risk reducing agent. 2. If overall lifetime risk for the development of breast cancer is 20% or higher, the patient may qualify for future screening with alternating mammogram and breast MRI. [facility], , 08/18/2024 11:49 AM. Electronically signed and approved by: Matt Carson M.D. Radiologis
== END | disposition home or self-care (01) ==
LOC: RADMAMWWP 13:58
PROVIDERS: ATTEND Obstetrics & Gynecology
DX: Z12.31 Encounter for screening mammogram for malignant neoplasm of breast (principal); R92.333 Mammographic heterogeneous density, bilateral breasts; Z78.0 Asymptomatic menopausal state; Z92.0 Personal history of contraception; Z80.3 Family history of malignant neoplasm of breast
CPT/HCPCS: 77067